=== PATIENT | male | born 1990 | race Caucasian/White ===

== ENCOUNTER 2019-07-26 02:59 | Emergency (ER) | payer OTHER ==
[~2019-07-26] VITALS: Ht 175.3 cm; Wt 111.6 kg
[2019-07-26 03:03] VITALS: Ht 175.3 cm; Wt 111.6 kg
[2019-07-26 03:49] VITALS: BP 129/109
== END 2019-07-26 03:49 | disposition left against medical advice (07) ==
LOC: ED 02:59
DX: A05.9 Bacterial foodborne intoxication, unspecified (principal); Z88.1 Allergy status to other antibiotic agents; Z88.2 Allergy status to sulfonamides